=== PATIENT | male | born 1955 | race Caucasian/White ===

== ENCOUNTER 2019-06-10 10:09 | Emergency (ER) | payer OTHER ==
[~2019-06-10] VITALS: Ht 172.7 cm; Wt 90.7 kg
[~2019-06-10 10:09] MED LIST: CEFDINIR300 MG PO; COLACE100 MG PO; HYDROCODON-ACE1 EAC7; HYDROCODONE-APA1 TA1 PO; LEVITRA20 MG PO; LIQUITEARS15 ML; NORCO 5-325 TA1 EACH PO; PERCOCET 7.5-31 EACH PO; PRINIVIL20 MG PO; SKELAXIN 800 M800 M1 PO; SUDAFED30 MG PO; TEGRETOL XR200 MG PO; VITAMIN D1000 UNI2 PO; ZONEGRAN100 MG PO
[2019-06-10 10:57] VITALS: BP 143/101
[2019-06-10] MEDS ORDERED: IBUPROFEN 600600 M1 PO (11:58)
[2019-06-10] MEDS ORDERED: MAGIC MOUTHWASH SWISH&SPIT (11:58)
== END 2019-06-10 12:00 | disposition home or self-care (01) ==
LOC: ER 10:09
DX: K12.1 Other forms of stomatitis (principal); I10 Essential (primary) hypertension; F17.210 Nicotine dependence, cigarettes, uncomplicated; Z96.611 Presence of right artificial shoulder joint; Z96.612 Presence of left artificial shoulder joint; Z90.89 Acquired absence of other organs; Z88.0 Allergy status to penicillin

== ENCOUNTER 2019-07-08 09:57 | Emergency (ER) | payer OTHER ==
[~2019-07-08] VITALS: Ht 172.7 cm; Wt 90.7 kg
[~2019-07-08 09:57] MED LIST changes: +IBUPROFEN 600600 M1 PO; +MAGIC MOUTHWASH SWISH&SPIT
[2019-07-08 09:58] VITALS: BP 161/91
== END 2019-07-08 10:46 | disposition home or self-care (01) ==
LOC: EDBD 09:57 → ER 09:57
DX: S63.8X1A Sprain of other part of right wrist and hand, initial encounter (principal); F17.210 Nicotine dependence, cigarettes, uncomplicated; I10 Essential (primary) hypertension; Z88.0 Allergy status to penicillin; Z96.653 Presence of artificial knee joint, bilateral; Z90.89 Acquired absence of other organs; Z96.612 Presence of left artificial shoulder joint; Z96.611 Presence of right artificial shoulder joint; W01.0XXA Fall on same level from slipping, tripping and stumbling without subsequent striking against object, initial encounter; Y92.89 Other specified places as the place of occurrence of the external cause; Y93.89 Activity, other specified; Y99.8 Other external cause status

== ENCOUNTER 2019-07-29 12:41 | Emergency (ER) | payer OTHER ==
[~2019-07-29] VITALS: Ht 172.7 cm; Wt 88.5 kg
[2019-07-29] MEDS ORDERED: KEFLEX500 M1 PO (13:59)
[2019-07-29 14:14] VITALS: BP 151/82
== END 2019-07-29 14:14 | disposition home or self-care (01) ==
LOC: ER 12:41
DX: S80.12XA Contusion of left lower leg, initial encounter (principal); I10 Essential (primary) hypertension; F17.210 Nicotine dependence, cigarettes, uncomplicated; Z90.89 Acquired absence of other organs; Z96.653 Presence of artificial knee joint, bilateral; Z96.612 Presence of left artificial shoulder joint; Z96.611 Presence of right artificial shoulder joint; Z88.0 Allergy status to penicillin; W18.39XA Other fall on same level, initial encounter; Y93.89 Activity, other specified; Y92.828 Other wilderness area as the place of occurrence of the external cause; Y99.8 Other external cause status

== ENCOUNTER 2020-02-06 13:44 | Emergency (ER) | payer OTHER ==
[~2020-02-06] VITALS: Ht 172.7 cm; Wt 93.9 kg
[~2020-02-06 13:44] MED LIST changes: +KEFLEX500 M1 PO
[2020-02-06 13:46] VITALS: BP 170/97
[2020-02-06] MEDS ORDERED: TADALAFIL20 MG PO (13:53)
[2020-02-06] MEDS ORDERED: NASAL DECONGEST10 MG PO (13:53)
[2020-02-06] MEDS ORDERED: KEFLEX500 M1 PO (14:30)
[2020-02-06] MEDS ORDERED: MEDROLDOSEPACK PO (14:30)
== END 2020-02-06 14:30 | disposition home or self-care (01) ==
LOC: ER 13:44
DX: L25.9 Unspecified contact dermatitis, unspecified cause (principal); I10 Essential (primary) hypertension; F17.210 Nicotine dependence, cigarettes, uncomplicated; Z79.899 Other long term (current) drug therapy

== ENCOUNTER 2021-07-01 11:10 | Emergency (ER) | payer OTHER ==
[~2021-07-01] VITALS: Ht 172.7 cm; Wt 94.8 kg
[~2021-07-01 11:10] MED LIST changes: +MEDROLDOSEPACK PO; +NASAL DECONGEST10 MG PO; +TADALAFIL20 MG PO
[2021-07-01 11:17] VITALS: BP 154/89
== END 2021-07-01 12:09 | disposition home or self-care (01) ==
LOC: ER 11:10
DX: S61.412A Laceration without foreign body of left hand, initial encounter (principal); I10 Essential (primary) hypertension; Z90.89 Acquired absence of other organs; Z98.890 Other specified postprocedural states; Z79.899 Other long term (current) drug therapy; Z79.891 Long term (current) use of opiate analgesic; Z88.0 Allergy status to penicillin; Z87.891 Personal history of nicotine dependence; W01.0XXA Fall on same level from slipping, tripping and stumbling without subsequent striking against object, initial encounter; Y93.89 Activity, other specified; Y92.89 Other specified places as the place of occurrence of the external cause; Y99.8 Other external cause status